=== PATIENT | male | born 1955 | race Caucasian/White ===

== ENCOUNTER → 2023-11-24 10:37 | Outpatient (REF) | payer OTHER, SELFPAY | LOC: HWRAD 10:37 | PROVIDERS: ATTENDING PHYSICIAN Family Medicine | DX: I10 Essential (primary) hypertension (principal) | CPT/HCPCS: 71046 ==

== ENCOUNTER → 2024-10-12 14:48 | Outpatient (REF) | payer OTHER, SELFPAY | LOC: HWRAD 14:48 | PROVIDERS: ATTENDING PHYSICIAN Family Medicine | DX: I83.90 Asymptomatic varicose veins of unspecified lower extremity (principal) | CPT/HCPCS: 93970 ==

== ENCOUNTER 2025-05-15 19:18 | Inpatient (IN) | payer OTHER, SELFPAY ==
[2025-05-15 14:40] VITALS: BP 146/100
[2025-05-15 15:09] LABS: Hematocrit 40.9 % (39.0-52.0); Hemoglobin 13.8 g/dL (13.0-18.0); Mean Corp Hgb Conc. 33.7 g/dL (33.0-37.0); Mean Corpuscular Volume 86.1 fL (80.0-94.0); Nucleated Red Blood Cells % 0 % (-); Platelet Count 156 10^3/uL (130-400); Red Cell Dist. Width 12.5 % (11.5-14.5)
[2025-05-15 15:18] VITALS: BMI 33.4
--- NOTE | 2025-05-15 15:28 | ED.GENMED ---
History of Present Illness
<Kian Zhao, HOSPITAL STAFF PHARMACIST - Last Filed: 05/15/25 19:46>
General
Chief Complaint: DVT/Possible Blood Clot
Source: patient
Exam Limitations: none
Time Seen by Provider: 05/15/25 15:25
Nursing documentation reviewed up to this point in time: agreed with
History of Present Illness
History of Present Illness:
69-year-old male with history of HTN, GERD, IDDM, asthma presents for increasing redness, swelling, pain right lower extremity over the past 5 days. He is on amoxicillin 500 mg 3 times daily for sinus infection for the past 5 days. He denies fever
or chills. No recent travel. No known risk factors for clotting disorder
Past History
<Kina Zhao, HOSPITAL STAFF PHARMACIST - Last Filed: 05/15/25 19:46>
Past History
ED Past Medical History: Asthma and HTN
ED Past Surgical History: None
Social History
Tobacco: Non-smoker
Personal:
Living: with family
Employment: Employed
Review of Systems
<Kina Zhao, HOSPITAL STAFF PHARMACIST - Last Filed: 05/15/25 19:46>
Review of Systems
Allergies reviewed?: Yes
All Other Systems: ROS reviewed and negative except as documented in HPI and ROS
Phy Exam
<Kina Zhao, HOSPITAL STAFF PHARMACIST - Last Filed: 05/15/25 19:46>
Physical Exam
Physical Exam:
GENERAL: No acute distress. A&Ox3.
CONSTITUTIONAL: Afebrile.
EYES: clear, conjunctivae normal
ENMT: moist mucus membranes, Pharynx nl
RESPIRATORY: Regular respirations, nonlabored, lungs clear.
CARDIOVASCULAR: Regular rate and rhythm, no murmurs, no rubs. +2 bilateral pedal pulses, feet warm and pink.
GI: Soft, nontender, normal BS
MUSCULOSKELETAL: Moves with ease. Well perfused.
SKIN: Warm, dry, pink. Right lower extremity is swollen twice the size of opposite leg, it is warm, red and tender. Most of the redness is from the knee down to the ankle, the foot is spared, the thigh has faint redness entire thigh.
PSYCH: Normal mood and affect. Well kept, interactive and appropriate
NEUROLOGIC: Awake, alert and oriented. No focal neurological deficits
Course
<Kina Zhao, HOSPITAL STAFF PHARMACIST - Last Filed: 05/15/25 19:46>
Orders/Labs/Results
Orders:
Orders
05/15/25 14:43
Periph Venous Lwr Ext Rt US [US Periph Venous LOWER Ext RT] Urgent
Comment:
Reason For Exam: swelling/pain
05/15/25 14:53
Complete Blood Count/With Diff Urgent
Comprehensive Metabolic Panel Urgent
05/15/25 17:[address] See Dose Instructions PO NOW STA
Discontinue all Active Warfarin orders?: Yes
Nursing to Place Non Medication Order As Directed
Physician Order: PTT 6 hours after initial start of Heparin infusion
Above order entered?: Yes
05/15/25 17:30
Heparin 22478 Units/250 ml 25,000 units in 250 ml IV PER PROTOCOL
Weight to be used for heparin protocol in kilograms (kg):: 96.5
Protocol:: DVT/PE
PTT Goal Range to be used:: PTT 73 to 111 seconds
Order type:: Initial
INITIAL Infusion Dose (UNITS/KG/hr) & then follow protocol:: 18 units/kg/hr
Infusion Dose in UNITS/hr & then follow protocol (UNITS/hr):: 1,700
INFUSION RATE in mL/hr & then follow protocol (mL/hr):: 17
For DVT/PE algorithm, re-bolus for low PTT?: Yes
PTT less than or equal to 64 seconds:: Re-bolus 80 units/kg (max 10,000units). Increase by 400 units/hr
(+ 4mL/hr)
PTT 64.1 to 72.9 seconds:: Re-bolus 40 units/kg (max 5,000 units). Increase by 200 units/hr
(+ 2mL/hr)
PTT 73 to 111 seconds:: Target Range. No change in rate.
PTT 111.1 to 130.9 seconds:: Decrease rate by 200 units/hr (- 2 mL/hr)
PTT 131 to 199.9 seconds:: HOLD for 1 hr. Then decrease by 300 units/hr (- 3mL/hr)
PTT greater than or equal to 200 seconds:: HOLD for 2 hrs & Notify Provider. Then decrease by 400 units/hr
(- 4mL/hr)
Lab follow-up:: Each change, PTT q6h until 2 consecutive are therapeutic. Then
PTT daily.
05/15/25 17:34
Dima Wrap Right-Treatment ONCE
05/15/25 17:35
Vascular Surgery Consult Urgent
Consulting Provider: Laila Irizarry
Was physician already notified: Yes
Reason for consult: Extensive DVT RLE
05/15/25 17:[address] Non Medication Order As Directed
Physician Order: please do med rec
Above order entered?: Yes
05/15/25 17:57
CT Abd/Pel (IV only)-DH only Urgent
Comment: VENOGRAM
Reason For Exam: thrombosis
05/15/25 18:00
Heparin [id number] Units/250 ml 25,000 units in 250 ml IV PER PROTOCOL
Weight to be used for heparin protocol in kilograms (kg):: 96.5
Protocol:: DVT/PE
PTT Goal Range to be used:: PTT 73 to 111 seconds
Order type:: Initial
INITIAL Infusion Dose (UNITS/KG/hr) & then follow protocol:: 18 units/kg/hr
Infusion Dose in UNITS/hr & then follow protocol (UNITS/hr):: 1,700
INFUSION RATE in mL/hr & then follow protocol (mL/hr):: 17
For DVT/PE algorithm, re-bolus for low PTT?: Yes
PTT less than or equal to 64 seconds:: Re-bolus 80 units/kg (max 10,000units). Increase by 400 units/hr
(+ 4mL/hr)
PTT 64.1 to 72.9 seconds:: Re-bolus 40 units/kg (max 5,000 units). Increase by 200 units/hr
(+ 2mL/hr)
PTT 73 to 111 seconds:: Target Range. No change in rate.
PTT 111.1 to 130.9 seconds:: Decrease rate by 200 units/hr (- 2 mL/hr)
PTT 131 to 199.9 seconds:: HOLD for 1 hr. Then decrease by 300 units/hr (- 3mL/hr)
PTT greater than or equal to 200 seconds:: HOLD for 2 hrs & Notify Provider. Then decrease by 400 units/hr
(- 4mL/hr)
Lab follow-up:: Each change, PTT q6h until 2 consecutive are therapeutic. Then
PTT daily.
Pharmacy Request to Place See Dose Instructions IV DIRECTED
05/15/25 18:03
Admit/Transfer Patient As Directed
Co-Sign Provider:
Level of Care: Inpatient admission
Assign to:: Medical/Surgical
Physician / Group: Obinna
Diagnosis: RLE DVT
Reason for Hospitalization: No other acute symptoms.
Expected length of stay greater than two midnights?: Yes
ELOS- Estimated Length of Stay in days: 3
I certify the patient meets the requirements for IP care: Yes
PRN Pain Medication Management As Directed
May give lesser potent ordered pain med per pt: Yes
preference::
Protocol:: Medication orders for pain may be administered in a
manner that supports deferring to patient preference
when the pt is:
- Requesting an ordered lesser potent pain medication.
Least to most potent pain medications are defined
as: acetaminophen < NSAID < tramadol < opioids
(morphine, oxycodone, hydromorphone).
- Requesting a lesser dose of the same medication IF
ORDERED.
- Requesting a less intrusive route of administration
if both routes are prescribed by the provider (PO <
IV).
05/15/25 18:04
Code Status As Directed
Resuscitation Status: Full Code
05/15/25 18:22
PTT Urgent
Prothrombin Time Urgent
05/15/25 18:40
Heparin 3,800 units IV PRN PRN
Heparin 7,700 units IV PRN PRN
05/16/25 00:45
PTT Urgent
Abnormal Lab Results
05/15/25
14:53
Sodium 133 L mmol/L
(135-145)
Carbon Dioxide 19 L mmol/L
(22-30)
Glucose 270 H mg/dl
(70-99)
05/15/25 14:53
05/15/25 14:53
Vital Signs
Initial and Last Documented VS:
Initial Vital Signs
Temp Pulse Resp BP Pulse Ox
98.9 F 98 18 146/100 96
05/15/25 14:40 05/15/25 14:40 05/15/25 14:40 05/15/25 14:40 05/15/25 14:40
Last Documented Vital Signs
Temp Pulse Resp BP Pulse Ox
98.9 F 97 18 148/93 97
05/15/25 14:40 05/15/25 18:00 05/15/25 18:00 05/15/25 18:00 05/15/25 18:00
Lead Electrical Engineer consulted with Physician
Lead Electrical Engineer consulted with physician?: Yes
Name of Physician Consulted: Mason
<Radha Cuevas, DO - Last Filed: 05/15/25 18:08>
Orders/Labs/Results
Orders:
Orders
05/15/25 14:43
Periph Venous Lwr Ext Rt US [US Periph Venous LOWER Ext RT] Urgent
Comment:
Reason For Exam: swelling/pain
05/15/25 14:53
Complete Blood Count/With Diff Urgent
Comprehensive Metabolic Panel Urgent
05/15/25 17:[address] See Dose Instructions PO NOW STA
Discontinue all Active Warfarin orders?: Yes
Nursing to Place Non Medication Order As Directed
Physician Order: PTT 6 hours after initial start of Heparin infusion
Above order entered?: Yes
05/15/25 17:30
Heparin [id number] Units/250 ml 25,000 units in 250 ml IV PER PROTOCOL
Weight to be used for heparin protocol in kilograms (kg):: 96.5
Protocol:: DVT/PE
PTT Goal Range to be used:: PTT 73 to 111 seconds
Order type:: Initial
INITIAL Infusion Dose (UNITS/KG/hr) & then follow protocol:: 18 units/kg/hr
Infusion Dose in UNITS/hr & then follow protocol (UNITS/hr):: 1,700
INFUSION RATE in mL/hr & then follow protocol (mL/hr):: 17
For DVT/PE algorithm, re-bolus for low PTT?: Yes
PTT less than or equal to 64 seconds:: Re-bolus 80 units/kg (max 10,000units). Increase by 400 units/hr
(+ 4mL/hr)
PTT 64.1 to 72.9 seconds:: Re-bolus 40 units/kg (max 5,000 units). Increase by 200 units/hr
(+ 2mL/hr)
PTT 73 to 111 seconds:: Target Range. No change in rate.
PTT 111.1 to 130.9 seconds:: Decrease rate by 200 units/hr (- 2 mL/hr)
PTT 131 to 199.9 seconds:: HOLD for 1 hr. Then decrease by 300 units/hr (- 3mL/hr)
PTT greater than or equal to 200 seconds:: HOLD for 2 hrs & Notify Provider. Then decrease by 400 units/hr
(- 4mL/hr)
Lab follow-up:: Each change, PTT q6h until 2 consecutive are therapeutic. Then
PTT daily.
05/15/25 17:34
Dima Wrap Right-Treatment ONCE
05/15/25 17:35
Vascular Surgery Consult Urgent
Consulting Provider: Laila Irizarry
Was physician already notified: Yes
Reason for consult: Extensive DVT RLE
05/15/25 17:[address] Non Medication Order As Directed
Physician Order: please do med rec
Above order entered?: Yes
05/15/25 17:57
CT Abd/Pel (IV only)-DH only Urgent
Comment: VENOGRAM
Reason For Exam: thrombosis
05/15/25 18:00
Heparin [id number] Units/250 ml 25,000 units in 250 ml IV PER PROTOCOL
Weight to be used for heparin protocol in kilograms (kg):: 96.5
Protocol:: DVT/PE
PTT Goal Range to be used:: PTT 73 to 111 seconds
Order type:: Initial
INITIAL Infusion Dose (UNITS/KG/hr) & then follow protocol:: 18 units/kg/hr
Infusion Dose in UNITS/hr & then follow protocol (UNITS/hr):: 1,700
INFUSION RATE in mL/hr & then follow protocol (mL/hr):: 17
For DVT/PE algorithm, re-bolus for low PTT?: Yes
PTT less than or equal to 64 seconds:: Re-bolus 80 units/kg (max 10,000units). Increase by 400 units/hr
(+ 4mL/hr)
PTT 64.1 to 72.9 seconds:: Re-bolus 40 units/kg (max 5,000 units). Increase by 200 units/hr
(+ 2mL/hr)
PTT 73 to 111 seconds:: Target Range. No change in rate.
PTT 111.1 to 130.9 seconds:: Decrease rate by 200 units/hr (- 2 mL/hr)
PTT 131 to 199.9 seconds:: HOLD for 1 hr. Then decrease by 300 units/hr (- 3mL/hr)
PTT greater than or equal to 200 seconds:: HOLD for 2 hrs & Notify Provider. Then decrease by 400 units/hr
(- 4mL/hr)
Lab follow-up:: Each change, PTT q6h until 2 consecutive are therapeutic. Then
PTT daily.
Pharmacy Request to Place See Dose Instructions IV DIRECTED
05/15/25 18:03
Admit/Transfer Patient As Directed
Co-Sign Provider:
Level of Care: Inpatient admission
Assign to:: Medical/Surgical
Physician / Group: Obinna
Diagnosis: RLE DVT
Reason for Hospitalization: No other acute symptoms.
Expected length of stay greater than two midnights?: Yes
ELOS- Estimated Length of Stay in days: 3
I certify the patient meets the requirements for IP care: Yes
PRN Pain Medication Management As Directed
May give lesser potent ordered pain med per pt: Yes
preference::
Protocol:: Medication orders for pain may be administered in a
manner that supports deferring to patient preference
when the pt is:
- Requesting an ordered lesser potent pain medication.
Least to most potent pain medications are defined
as: acetaminophen < NSAID < tramadol < opioids
(morphine, oxycodone, hydromorphone).
- Requesting a lesser dose of the same medication IF
ORDERED.
- Requesting a less intrusive route of administration
if both routes are prescribed by the provider (PO <
IV).
05/15/25 18:04
Code Status As Directed
Resuscitation Status: Full Code
05/15/25 18:22
PTT Urgent
Prothrombin Time Urgent
05/15/25 18:40
Heparin 3,800 units IV PRN PRN
Heparin 7,700 units IV PRN PRN
05/16/25 00:45
PTT Urgent
Abnormal Lab Results
05/15/25
14:53
Sodium 133 L mmol/L
(135-145)
Carbon Dioxide 19 L mmol/L
(22-30)
Glucose 270 H mg/dl
(70-99)
05/15/25 14:53
05/15/25 14:53
Vital Signs
Initial and Last Documented VS:
Initial Vital Signs
Temp Pulse Resp BP Pulse Ox
98.9 F 98 18 146/100 96
05/15/25 14:40 05/15/25 14:40 05/15/25 14:40 05/15/25 14:40 05/15/25 14:40
Last Documented Vital Signs
Temp Pulse Resp BP Pulse Ox
98.9 F 97 18 148/93 97
05/15/25 14:40 05/15/25 18:00 05/15/25 18:00 05/15/25 18:00 05/15/25 18:00
<Kina Zhao, HOSPITAL STAFF PHARMACIST - Last Filed: 05/15/25 19:46>
MDM/Problems Addressed
Differential Diagnosis Includes:
DVT, Cellulitis
MDM/Problems Addressed:
69-year-old male with history of HTN, GERD, IDDM, asthma presents for increasing redness, swelling, pain right lower extremity over the past 5 days. He is on amoxicillin 500 mg 3 times daily for sinus infection for the past 5 days. He denies fever
or chills. No recent travel. No known risk factors for clotting
Afebrile, NAD
CBC normal
CMP with no clinically significant abnormality
Ultrasound right lower extremity radiology report read: IMPRESSION: Severe extensive DVT of the right lower extremity as described above. New.
Limited evaluation of the calf veins due to soft tissue edema. New.
Case discussed with Dr. Cuevas
5:00 PM:
Ultrasound right lower extremity radiology report read:
IMPRESSION: Severe extensive DVT of the right lower extremity as described above. New.
Limited evaluation of the calf veins due to soft tissue edema. New.
5:30 p.m.
Consulted vascular surgery Dr. Irizarry who requests admission, heparin drip, CTV of pelvis to be done tomorrow, n.p.o. after midnight, elevate and Dima wrap
Hospitalist notified of admission.
<Kina Zhao, HOSPITAL STAFF PHARMACIST - Last Filed: 05/15/25 19:46>
*Pulse Oximetry
SaO2: 96
Oxygen Mode of Delivery: Room air
Patient hypoxic: no
*Critical Care Note
Total Time (30-74mins, 75-104mins- exclusive of procedures): Not Applicable
ED Attending Note
<Kina Zhao, HOSPITAL STAFF PHARMACIST - Last Filed: 05/15/25 19:46>
-
Portions of this chart may have been created with voice recognition software.� Occasional wrong word or��sound alike� substitutions may have occurred due to the inherent limitations of voice recognition software.
<Radha Cuevas, DO - Last Filed: 05/15/25 18:08>
ED Attending Note
Patient seen and examined by attending physician: Yes
I performed the substantive portion of visit, reviewed & personally made and approve the management plan that is documented in note by myself or NIRAJ.: Yes
I performed a history and physical exam of patient and discussed management with resident, I reviewed resident's note and agree with documented findings and plan of care.: Yes
ED Attending Note:
69-year-old male presenting to the emergency department for right lower extremity swelling and pain. Patient notes symptoms for the past 5 days. Reports he had something similar about a month ago, however went away on its own. Denies any recent
immobility or recent travel. Denies any history of blood clots. Denies numbness or tingling. Notes that he has been scratching at the top of anterior yusuf, thought that maybe he had a rash from a plant. Denies fever. Notes pain with ambulation,
however is able to bear weight. Denies any recent injury. He denies chest pain or difficulty breathing. Vital signs on arrival are significant for mild hypertension.
On exam, patient resting comfortably. Significant swelling to the right lower extremity in comparison to the left encompassing the entire leg, from the calf up to the thigh. There is erythema and warmth. Intact sensation and palpable pulses
without concern for arterial compromise. Labs obtained prior to my assessment, unremarkable, no leukocytosis. Lower suspicion for cellulitis. DVT ultrasound obtained prior to my assessment which does show significant DVT encompassing the entire
right leg involving the common femoral. In discussion with vascular, plan for CT venogram, admission with heparin drip, possible thrombectomy
Discharge Plan
Departure
Patient Disposition: Admit
Date of Disposition: 05/15/25
Time of Disposition: 17:36
Admit to: Med/Surg
Presentation/result/management discussed w/ accepting MD/DO: Hospitalist
Condition: Fair
Discharge Problem:
Deep vein thrombosis (DVT) of right lower extremity
Interventions
Interventions:
*Risk Screen - Suicide Last Done: 05/15/25 14:40
*General Assessment Last Done: 05/15/25 14:40
*Neglect/Abuse Screening Last Done: 05/15/25 14:40
*ED- Fall Risk Assessment Last Done: 05/15/25 14:40
*ED COVID-19 Vaccine History Last Done: 05/15/25 14:40
*ED Influenza Vaccine History Last Done: 05/15/25 14:40
ED- Cardiac Assessment Last Done: 05/15/25 15:18
ED- Pulmonary Assessment Last Done: 05/15/25 15:18
ED-Peripheral Vascular Assessment Last Done: 05/15/25 15:18
ED-Skin Assessment Last Done: 05/15/25 15:18
[2025-05-15 15:37] LABS: ALT (SGPT) 32 U/L (0-50); AST (SGOT) 32 U/L (17-59); Albumin 4.3 g/dl (3.5-5.0); Alkaline Phosphatase 79 U/L (38-126); Blood Urea Nitrogen 18 mg/dl (9-20); Calcium 8.9 mg/dl (8.4-10.2); Carbon Dioxide 19 mmol/L (22-30); Chloride 103 mmol/L (98-107); Estimated Creatinine Clearance 98 ml/min; Glucose 270 mg/dl (70-99); Potassium 4.6 mmol/L (3.5-5.1); Sodium 133 mmol/L (135-145); Total Protein 6.7 g/dl (6.3-8.2); eGFR > 60.00
--- NOTE | 2025-05-15 17:38 | HPS.HSE ---
Addendum entered and electronically signed by Mariano Yeboah MD 05/15/25 18:08:
RLE U/S: Severe extensive DVT of the right lower extremity as described above. New.
Limited evaluation of the calf veins due to soft tissue edema. New.
Original Note:
Family Physician
-
Family Physician: Wolfgang Calhoun
Chief Complaint
-
Right lower extremity pain, edema, erythema x 5 days
History of Present Illness
69 y/o M with PMHx:
Essential HTN
Obesity due to excess calories
GERD
DM2
who p/w CC Right lower extremity pain, edema, erythema x 5 days. Patient denies any recent travel or trauma. Of note he has been on amoxicillin over the last 5 days for sinus infection. He has had some associated headaches. 5 days ago he had
some vomiting which was thought to be due to food poisoning. No other acute symptoms.
Medical History
Past Medical History
Past Medical History: Reports Other (as per HPI)
Past Surgical History: Reports Other (N/A)
Social History
Tobacco: Non-smoker
Alcohol: None
Drug: Marijuana
Family History
Family History: Not pertinent
Allergies / Home Medications
Allergies reflects when Allergies were last updated in [employer].
Home Medications with original date entered in [employer]
Allergy/Medication List:
Allergies
Allergy/AdvReac Type Severity Reaction Status Date / Time
soy Allergy HEADACHE Verified 05/15/25 14:40
Home Medications
metformin 500 mg tablet 500 mg PO BID #60 tabs 12/07/16
Med rec being completed now
Review of Systems
-
History Source: Patient
A 12 point ROS was completed and negative except as noted: Yes
Physical Exam
Vital Signs
Vital Signs
Temp Pulse Resp BP Pulse Ox
98.9 F 98 18 146/100 96
05/15/25 14:40 05/15/25 14:40 05/15/25 14:40 05/15/25 14:40 05/15/25 15:29
Physical Exam
General: Other (.)
Laboratory Results
-
05/15/25 14:53
05/15/25 14:53
Laboratory Results
Total Bilirubin 0.9 mg/dl (0.2-1.3) 05/15/25 14:53
AST 32 U/L (17-59) 05/15/25 14:53
ALT 32 U/L (0-50) 05/15/25 14:53
Alkaline Phosphatase 79 U/L (38-126) 05/15/25 14:53
Impression/Plan
-
Gen: NAD, AAOx3.
Eyes: EOMI, PERRLA, no scleral icterus.
Neck: supple.
CV: RRR, +S1/S2, no m/r/g.
Resp: CTAB, no rales, wheezes, or rhonchi.
Abd: +BS, soft, NT, ND
Skin: 2+ RLE edema
Vasc: 2+ R DP pulse
Neuro: CN 2-12 intact, non-focal.
Psych: Normal mood and affect.
Extensive, unprovoked right lower extremity DVT:
-heparin gtt
-vascular to see
-NPO after MN
-elevation/VENKAT wrap as per vascular
-check CT venogram pelvis
Other problems:
Essential HTN: will order home antihypertensives once med rec completed
Obesity due to excess calories: Encourage weight loss
GERD: cont PPI
DM2: No metformin as patient will receive contrast. SSI/accuchecks, check a1c.
FULL/heparin gtt
[2025-05-15 18:00] VITALS: BP 148/93
[2025-05-15 18:39] LABS: INR 1.02; PT 13.9 Sec (11.4-14.6)
[2025-05-15 18:40] LABS: APTT 27.2 Sec (23.4-35.0)
[2025-05-15] MEDS: HEPARIN 25000 UNITS/250 ML IV (18:47)
[2025-05-15 20:30] VITALS: BMI 32.8
[2025-05-15 20:34] VITALS: BP 164/90
--- NOTE | 2025-05-15 20:34 | PTCARENOTE ---
Pt arrived to room 416-01. Pt AAOx3, VSS. Pt hep gtt @1700 units/ hr. Pt oriented to room, call menezes placed within reach. Bed alarm in place.
[2025-05-15 21:04] LABS: Glucose - Point of Care 263 mg/dl (70-99)
[2025-05-15 22:38] VITALS: BP 148/85
[2025-05-16 01:11] LABS: APTT 72.8 Sec (23.4-35.0)
[2025-05-16] MEDS: HEPARIN 3800 UNITS IV ×2 (01:50→16:28)
[2025-05-16] MEDS: LANTUS 0.4 UNITS SC ×2 (02:28→22:00)
[2025-05-16 06:02] LABS: Glucose - Point of Care 106 mg/dl (70-99)
[2025-05-16 07:20] VITALS: BP 130/76
[2025-05-16 07:40] LABS: Hematocrit 39.0 % (39.0-52.0); Hemoglobin 13.5 g/dL (13.0-18.0); Mean Corp Hgb Conc. 34.6 g/dL (33.0-37.0); Mean Corpuscular Volume 83.2 fL (80.0-94.0); Platelet Count 167 10^3/uL (130-400); Red Cell Dist. Width 12.6 % (11.5-14.5)
[2025-05-16 08:02] LABS: APTT 153.6 Sec (23.4-35.0)
--- NOTE | 2025-05-16 08:11 | CON.VAS ---
Consultation
Consultation Request
Date/Time Consultation Performed: 05/16/25 0800
Requesting Provider: Hospitalist
Performing Provider: Jyoti Bolanos NP-C for Krishan Cisneros MD
Reason for Consultation: RLE extensive DVT
Medical History
-
Chief Complaint: Extensive RLE DVT
History of Present Illness:
This is a 69-year-old male with significant past medical history for asthma, GERD, HTN, and DM who presents with 5-day history of right lower extremity swelling. Does not note severe pain, but when he walked he notes that his leg tires out. He
also notes that about a month ago he had symptoms in the same leg of swelling, but much lesser so than currently. Denies any prior history of DVTs. No family history of DVTs. No recent major surgeries. No immobility (prolonged car or plane
rides). No recent hospitalizations. Notes also no contraindications to thrombolysis (no intracranial bleed/tumor/CVA/GI bleeds/recent major surgery). Ultrasound of RLE was obtained and demonstrated, 'right common femoral, superficial femoral, and
popliteal veins all show diffuse intraluminal echogenicity consistent with thrombus formation. This is occlusive.' CT venogram then demonstrated, 'right lower extremity DVT extends into the distal aspect of the right external iliac vein. No thrombus
in the common iliac veins or IVC.'
Past Medical History
Past Medical History: Asthma, GERD, HTN and IDDM (obesity )
Past Surgical History: None
Social History
Tobacco: Non-Smoker
Alcohol: None
Drug: Marijuana
Allergies / Home Medications
Allergy/AdvReac Type Severity Reaction Status Date / Time
soy Allergy HEADACHE Verified 05/15/25 14:40
�Medication �Instructions �Recorded �Confirmed �Type
amoxicillin 500 mg capsule 500 mg PO TID 05/15/25 05/15/25 History
insulin glargine 100 unit/mL (3 30 unit SC DAILY 05/15/25 05/16/25 History
mL) subcutaneous pen (Lantus
Solostar U-100 Insulin)
insulin glargine 100 unit/mL (3 40 unit SC HS 05/15/25 05/16/25 History
mL) subcutaneous pen (Lantus
Solostar U-100 Insulin)
lisinopril 20 mg tablet 20 mg PO DAILY 05/15/25 05/16/25 History
metformin 500 mg tablet 500 mg PO QID 05/15/25 05/16/25 History
Review of Systems
-
History Source: Patient
Constitutional: Reports No Symptoms
EENT: Reports Other (intermittent GONSALVES r/t recent sinus infection )
Respiratory: Reports No Symptoms
Cardiac: Reports No Symptoms
Vascular: Denies Leg Pain / Claudication
Abdomen/GI: Reports No Symptoms
: Reports No Symptoms
Musculoskeletal: Reports Other (RLE leg swelling and fatigue)
Skin: Reports No Symptoms
Neurological: Reports No Symptoms
Endocrine: Reports No Symptoms
Physical Exam
Vital Signs
Temp Pulse Resp BP Pulse Ox
98.1 F 84 18 130/76 98
05/16/25 07:20 05/16/25 07:20 05/16/25 07:20 05/16/25 07:20 05/16/25 07:20
Lab Results
05/16/25 07:25
Physical Exam
General: No Apparent Distress
HEENT: Normocephalic, Anicteric and Atraumatic
Respiratory: Non Labored Respirations
Cardiac: Negative JVD
GI: Soft, Non Tender and Non Distended
Musculoskeletal: Edema
Skin: Warm, Dry and Other ( Right thigh and calf are moderately edematous compared to the left. However compartments are all soft. All compressive, no significant tenderness. Foot is warm with no evidence of phlegmasia. Palpable pedal pulses.
Motor/sensory fully intact)
Neuro: AO x 3
Psych: Calm
Assessment / Plan
-
Assessment: 69 year old male with extensive DVT in RLE
Plan:
Patient was seen and examined with attending Dr. Krishan Cisneros who had a very extensive discussion with him regarding management of DVT. Discussed with him initial therapy with anticoagulation, compression. Discussed role for catheter-based
intervention (catheter directed thrombolysis versus mechanical or pharmacomechanical thrombectomy) generally with advantages noted in the setting of iliofemoral DVTs. Discussed with him that his thrombus extends just into the external iliac vein
but not far above that. Discussed therefore that could pursue either option. Could offer catheter-based procedure (discussed with him the benefit in terms of accelerated symptom reduction, but also mainly in terms of prevention of post thrombotic
syndrome). Discussed alternatively the therapy of anticoagulation with compression wrap. Discussed anticoagulation does not have lytic ability as it is missed conceived frequently. Therefore clot may not dissolved. Although bodies on lytic
mechanism may dissolve some. Regardless with compression and anticoagulation, symptoms would onur generally with formation of collateral pathways. Dr. Cisneros discussed procedural technical aspects as well as anticipated outcome/recovery. Discussed
risks including not limited to bleeding, recurrent thrombus, PE. He understands all these things. He wishes to hold off on intervention if possible. Therefore we will continue with anticoagulation, compression therapy. I did discuss with him
frankly that if we hold off on any intervention currently that down the line may be more challenging due to the chronicity of the thrombus. He understands. We will sign off. Please call me with any questions.
Additionally recommend outpatient hematology consultation
[2025-05-16 08:24] LABS: Glucose - Point of Care 110 mg/dl (70-99)
[2025-05-16 08:59] LABS: Glycohemoglobin (HgbA1c) 9.5 % (4.0-5.6)
[2025-05-16 09:06] LABS: Blood Urea Nitrogen 14 mg/dl (9-20); Carbon Dioxide 25 mmol/L (22-30); Estimated Creatinine Clearance 111 ml/min; Potassium 4.1 mmol/L (3.5-5.1); Sodium 137 mmol/L (135-145); eGFR > 60.00
[2025-05-16] MEDS: HEPARIN 25000 UNITS/250 ML IV (09:20)
--- NOTE | 2025-05-16 09:35 | W.PN.UPDATE ---
Update Note
Progress Note Update
Seen and examined with INDUSTRIAL CONTROLS TECHNICIAN's. Full consultation to follow. 69-year-old male who presents with 5-day history of right lower extremity swelling. Does not note severe pain, but when he walked he notes that his leg tires out. He also notes that about
a month ago he had symptoms in the same leg of swelling, but much lesser so than currently. Denies any prior history of DVTs. No family history of DVTs. No recent major surgeries. No immobility (prolonged car or plane rides). No recent
hospitalizations. Notes also no contraindications to thrombolysis (no intracranial bleed/tumor/CVA/GI bleeds/recent major surgery).
On exam/he is awake alert. He is in no acute distress. Breathing is unlabored. Right thigh and calf are moderately edematous compared to the left. However compartments are all soft. All compressive, no significant tenderness. Foot is warm with
no evidence of phlegmasia. Palpable pedal pulses. Motor/sensory fully intact.
I reviewed imaging CT angiogram as well as duplex. Reviewed imaging myself.
Plan/ I had a very extensive discussion with him regarding management of DVT. Discussed with him initial therapy with anticoagulation, compression. Discussed role for catheter-based intervention (catheter directed thrombolysis versus mechanical or
pharmacomechanical thrombectomy) generally with advantages noted in the setting of iliofemoral DVTs. Discussed with him that his thrombus extends just into the external iliac vein but not far above that. In addition in the external iliac vein it
does not appear completely occlusive based on my interpretation of the CT images. Discussed therefore that could pursue either option. Could offer catheter-based procedure (discussed with him the benefit in terms of accelerated symptom reduction,
but also mainly in terms of prevention of post thrombotic syndrome). Discussed alternatively the therapy of anticoagulation with compression wrap. Discussed anticoagulation does not have lytic ability as it is missed conceived frequently.
Therefore clot may not dissolved. Although bodies on lytic mechanism may dissolve some. Regardless with compression and anticoagulation, symptoms would onur generally with formation of collateral pathways. I discussed procedural technical
aspects as well as anticipated outcome/recovery. Discussed risks including not limited to bleeding, recurrent thrombus, PE. He understands all these things. He wishes to hold off on intervention if possible. Therefore we will continue with
anticoagulation, compression therapy. I did discuss with him frankly that if we hold off on any intervention currently that down the line may be more challenging due to the chronicity of the thrombus. He understands. I do not think his decision
is unreasonable. Therefore we will sign off. Please call me with any questions.
[2025-05-16 09:37] LABS: Calcium 9.1 mg/dl (8.4-10.2); Chloride 105 mmol/L (98-107); Glucose 97 mg/dl (70-99)
[2025-05-16] MEDS: LANTUS 0.3 UNITS SC (10:12)
--- NOTE | 2025-05-16 10:38 | W.PN.HOSP.TC ---
Today's Communication/Plan
-
see plan
Assessment / Plan
Assessment / Plan
Gen: NAD, AAOx3.
Eyes: EOMI, PERRLA, no scleral icterus.
Neck: supple.
CV: remains RRR, +S1/S2, no m/r/g.
Resp: CTAB anteriorly, no rales, wheezes, or rhonchi.
Abd: +BS, soft, NT, ND
Skin: 2+ RLE edema, VENKAT wrap in place
Neuro: CN 2-12 intact, non-focal.
Psych: Normal mood and affect.
RLE U/S: Severe extensive DVT of the right lower extremity as described above. New. Limited evaluation of the calf veins due to soft tissue edema. New.
CTV A/P: Right lower extremity DVT extends into the distal aspect of the right external iliac vein. No thrombus in the common iliac veins or IVC.
Extensive, unprovoked right lower extremity DVT:
-cont heparin gtt
-vascular following, pt wishes to hold off on catheter-based procedure at this time
-elevation/VENKAT wrap as per vascular
DM2:
-poorly controlled, a1c 9.5%
-No metformin as patient received contrast
-cont Lantus AM/PM dosing
-SSI/accuchecks
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
Other problems:
Essential HTN: resume ACEi
Obesity due to excess calories: Encourage weight loss
GERD: cont PPI
FULL/heparin gtt
Anticipated Discharge: Within 24 hours
Subjective/Interval History
-
Date of Service: May 16, 2025
Denies RLE pain. Denies CP/SOB.
Objective Data
-
Labs:
Laboratory Results
05/16/25 05/16/25 05/16/25
00:40 07:25 15:20
WBC 8.5
Hgb 13.5
Hct 39.0
Plt Count 167
APTT 72.8 H 153.6 H* Pending
Sodium 137
Potassium 4.1
Chloride 105
Carbon Dioxide 25
BUN 14
Creatinine 0.7
Glucose 97
Calcium 9.1
Vital Signs:
Vital Signs
Temp Pulse Resp BP Pulse Ox
98.1 F 84 18 130/76 98
05/16/25 07:20 05/16/25 07:20 05/16/25 07:20 05/16/25 07:20 05/16/25 07:20
[2025-05-16] MEDS: ZESTRIL 20 MG PO (11:13)
--- NOTE | 2025-05-16 12:14 | CM ---
CM reviewed chart, patient seen bedside with , initial assessment completed.
Patient is a 69-year-old male with history of HTN, GERD, IDDM, asthma presents for increasing redness, swelling, pain right lower extremity over the past 5 days.
Patient resides with his in a one level apartment, one step to enter. Patient is independent with ambulation, reports having walkers/canes in the home if needed.
Patient denies VN/SNF hx, reports hx outpatient therapy in past.
PCP Wolfgang Calhoun, Pharmacy [facility], confirms prescription coverage.
Patient/ deny insecurities at home, however do discuss concern over rent increase- provided [employer] to patient.
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
Plan; home with
[2025-05-16 12:21] LABS: Glucose - Point of Care 125 mg/dl (70-99)
--- NOTE | 2025-05-16 13:14 | PN.DE.MGMTRT ---
Insulin Management
- -
05/16/2025: Diabetes Management Consult
69 year old male who p/w Right lower extremity pain, edema, erythema x 5 days. Found to have Severe extensive RLE DVT.
PMH: Essential HTN, GERD, T2DM and Obesity due to excess calories.
Pt is awake, alert, oriented, sitting up @ edge of bed eating lunch, offers no complaints, at bedside, very supportive.
States he has had diabetes for over 10 years and sees his PCP Wolfgang Monk for routine diabetes care.
He was taking Lantus 30 units in AM, 40 units @ HS and Metformin 500 mg 4 times a day.
States he has not been taking his insulin and Metformin as prescribed. He is taking the AM Lantus dose but forgets to the take the bedtime dose quite often and takes the Metformin twice/day and NOT 4 x/day as noted in his chart. He was also taking
Jardiance in the past but stopped it due to recurrent yeast infections.
He does not exercise and does not adhere to a diabetic diet. states, 'he drinks a lot of sugary stuff'.
He was using a CGM- Mary at some point but stopped using it because' those things don't work for me'.
Says he has a glucose meter and only tests his blood sugars once a day in the morning. A1C 9.5%, Cr 0.7, eGFR >60
His glucose on admission was 270 venous, he was started on his outpatient regimen and Metformin was placed on HOLD post contrast exposure.
HS glucose was 263, received Lantus 40 units, FBG 97 V and 106 POC this AM. Pre- breakfast glucose was 110 and pre-lunch was 126.
Will make no changes to current regimen. Cont Lantus 30 units in AM and 40 units @ HS. Will resume Metformin on 05/18 in AM at 1000 mg BID.
Will consult IP dietitian for dietary counseling.
Discussed with Nurse. Will cont to follow
Diabetes History
- -
Type of Diabetes: 2 requiring insulin
Pre-Admission Diabetes Regimen
05/15/25 05/16/25
14:53 07:25
Creatinine 0.8 0.7
Lab Results
Hemoglobin A1c 9.5 % (4.0-5.6) H 05/16/25 07:25
Insulin Pump Settings
IP Diabetes Regimen
05/15/25 05/15/25 05/16/25
14:53 21:03 06:00
Glucose 270 H
POC Glucose 263 H 106 H
05/16/25 05/16/25 05/16/25
07:25 08:23 12:20
Glucose 97
POC Glucose 110 H 125 H
Patient Education
[2025-05-16 15:32] VITALS: BP 114/64
[2025-05-16 15:48] LABS: APTT 65.9 Sec (23.4-35.0)
[2025-05-16] MEDS: AMOXIL 500 MG PO ×2 (16:29→21:58)
[2025-05-16 17:52] LABS: Glucose - Point of Care 131 mg/dl (70-99)
[2025-05-16 21:43] LABS: Glucose - Point of Care 94 mg/dl (70-99)
[2025-05-16 23:01] LABS: APTT 118.6 Sec (23.4-35.0)
[2025-05-16 23:07] VITALS: BP 107/56
[2025-05-17] MEDS: HEPARIN 25000 UNITS/250 ML IV (01:04)
[2025-05-17 05:53] LABS: Hematocrit 40.0 % (39.0-52.0); Hemoglobin 13.9 g/dL (13.0-18.0); Mean Corp Hgb Conc. 34.8 g/dL (33.0-37.0); Mean Corpuscular Volume 82.6 fL (80.0-94.0); Platelet Count 199 10^3/uL (130-400); Red Cell Dist. Width 12.5 % (11.5-14.5)
[2025-05-17 06:14] LABS: APTT 76.4 Sec (23.4-35.0)
[2025-05-17 07:00] VITALS: BP 122/85
[2025-05-17 07:12] LABS: Blood Urea Nitrogen 12 mg/dl (9-20); Calcium 9.0 mg/dl (8.4-10.2); Carbon Dioxide 23 mmol/L (22-30); Chloride 106 mmol/L (98-107); Estimated Creatinine Clearance 111 ml/min; Glucose 78 mg/dl (70-99); Potassium 3.9 mmol/L (3.5-5.1); Sodium 138 mmol/L (135-145); eGFR > 60.00
--- NOTE | 2025-05-17 07:44 | PN.DE.MGMTRT ---
Insulin Management
- -
05/17/2025: Diabetes Management Follow up
69 year old male who p/w Right lower extremity pain, edema, erythema x 5 days. Found to have Severe extensive RLE DVT.
PMH: Essential HTN, GERD, T2DM and Obesity due to excess calories.
Patient states he has had diabetes for over 10 years and sees his PCP Wolfgang Monk for routine diabetes care.
He was taking Lantus 30 units in AM, 40 units @ HS and Metformin 500 mg 4 times a day.
States he has not been taking his insulin and Metformin as prescribed. He is taking the AM Lantus dose but forgets to the take the bedtime dose quite often and takes the Metformin twice/day and NOT 4 x/day as noted in his chart. He was also taking
Jardiance in the past but stopped it due to recurrent yeast infections.
He does not exercise and does not adhere to a diabetic diet. states, 'he drinks a lot of sugary stuff'.
He was using a CGM- Mary at some point but stopped using it because' those things don't work for me'.
Says he has a glucose meter and only tests his blood sugars once a day in the morning. A1C 9.5%, Cr 0.7, eGFR >60
His glucose on admission was 270 venous, he was started on his outpatient regimen and Metformin was placed on HOLD post contrast exposure.
Pt is awake, alert, oriented, sitting up @ edge of bed, offers no complaints, able to discuss diabetes care plan.
05/16 glucose stable and in range, premeal 110 to 131. HS glucose was 94, received Lantus 40 units, fasting 78 V, 86 POC this AM
Will reduce HS Lantus dose from 40 units to 35 units. Cont Lantus 30 units in AM and low corrective insulin with meals
Will resume Metformin on 05/18 in AM at 1000 mg BID.
Discussed with Nurse. Will cont to follow
Diabetes History
- -
Type of Diabetes: 2 requiring insulin
Pre-Admission Diabetes Regimen
05/16/25 05/17/25
07:25 05:38
Creatinine 0.7 0.7
Lab Results
Hemoglobin A1c 9.5 % (4.0-5.6) H 05/16/25 07:25
Insulin Pump Settings
IP Diabetes Regimen
05/16/25 05/16/25 05/16/25
07:25 08:23 12:20
Glucose 97
POC Glucose 110 H 125 H
05/16/25 05/16/25 05/17/25
17:51 21:42 05:38
Glucose 78
POC Glucose 131 H 94
Patient Education
[2025-05-17 07:46] LABS: Glucose - Point of Care 86 mg/dl (70-99)
--- NOTE | 2025-05-17 08:29 | W.PN.HOSP.TC ---
Today's Communication/Plan
-
d/c
Assessment / Plan
Assessment / Plan
Gen: NAD, AAOx3.
Eyes: EOMI, PERRLA, no scleral icterus.
Neck: supple.
CV: continues to remain RRR, +S1/S2, no m/r/g.
Resp: CTAB anteriorly, no rales, wheezes, or rhonchi.
Abd: +BS, soft, NT, ND
Skin: remains 2+ RLE edema, VENKAT wrap in place
Neuro: CN 2-12 intact, non-focal.
Psych: Normal mood and affect.
RLE U/S: Severe extensive DVT of the right lower extremity as described above. New. Limited evaluation of the calf veins due to soft tissue edema. New.
CTV A/P: Right lower extremity DVT extends into the distal aspect of the right external iliac vein. No thrombus in the common iliac veins or IVC.
Extensive, unprovoked right lower extremity DVT:
-stop heparin gtt, transition to Eliquis
-vascular following, pt wishes to hold off on catheter-based procedure at this time
-elevation/VENKAT wrap as per vascular
DM2:
-poorly controlled, a1c 9.5%
-resume metformin on d/c 48 hours after contrast exposure
-cont Lantus AM/PM dosing
-SSI/accuchecks
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
Other problems:
Essential HTN: cont ACEi
Obesity due to excess calories: Encourage weight loss
GERD: cont PPI
FULL/heparin gtt
Total time spent on d/c = 33 min. This included today's physical exam, progress note, review of laboratory and diagnostic data, preparation of discharge documents and prescriptions, and discussions about the pt's hospital course and discharge plan
with the patient and other medical dosimetrist involved in the patient's care.
Anticipated Discharge: Today
Subjective/Interval History
-
Date of Service: May 17, 2025
No new complaints.
Objective Data
-
Labs:
Laboratory Results
05/16/25 05/17/25 05/17/25
22:45 05:38 12:49
WBC 7.8
Hgb 13.9
Hct 40.0
Plt Count 199
APTT 118.6 H 76.4 H Pending
Sodium 138
Potassium 3.9
Chloride 106
Carbon Dioxide 23
BUN 12
Creatinine 0.7
Glucose 78
Calcium 9.0
Vital Signs:
Vital Signs
Temp Pulse Resp BP Pulse Ox
98 F 88 17 122/85 98
05/17/25 07:00 05/17/25 07:00 05/17/25 07:00 05/17/25 07:00 05/17/25 07:00
I&O
05/16/25 05/17/25 05/18/25
06:59 06:59 06:59
Intake Total 1730 / 1730
Output Total 1075 / 1075
Balance 655 / 655
[2025-05-17] MEDS: LANTUS 0.3 UNITS SC (11:05)
[2025-05-17] MEDS: AMOXIL 500 MG PO (11:06)
[2025-05-17] MEDS: ZESTRIL 20 MG PO (11:06)
[2025-05-17 12:13] LABS: Glucose - Point of Care 81 mg/dl (70-99)
[2025-05-17] MEDS: ELIQUIS 10 MG PO (12:39)
--- NOTE | 2025-05-17 12:40 | CM ---
Patient seen at bedside on . Patient states that he is awaiting to transport home, and IMM completed. CM will continue to follow for discharge planning needs.
Plan; home with no needs.
[2025-05-17 13:42] VITALS: BP 140/97
--- NOTE | 2025-05-17 16:34 | W.DCSUMMARY ---
Discharge Summary
Discharge Data
Date of Admission: 05/15/25
Date of Discharge: 05/17/25
-
Pending Results: No
Hospital Course
Primary diagnoses:
Extensive, unprovoked right lower extremity DVT
Secondary diagnoses:
Type 2 diabetes mellitus
Essential hypertension
Obesity due to excess calories
Gastroesophageal reflux disease
Consultants:
Vascular surgery
Imaging:
RLE U/S: Severe extensive DVT of the right lower extremity as described above. New. Limited evaluation of the calf veins due to soft tissue edema. New.
CTV A/P: Right lower extremity DVT extends into the distal aspect of the right external iliac vein. No thrombus in the common iliac veins or IVC.
Hospital course: 69-year-old male who presented with chief complaints of Right lower extremity pain, edema, erythema x 5 days as outlined in the H&P done on admission. Patient was placed on a heparin drip. He was seen in consultation by vascular
surgery. He was offered a catheter-based procedure but refused. His right lower extremity was elevated and wrapped with VENKAT wraps. He was transition to [facility] and discharged in medically stable condition.
Discharge Plan
-
Patient Disposition: Home (Routine Discharge)
Discharge Diagnosis/Procedures: RLE DVT
Condition: Good
Diet: Diabetic, Carb Controlled
Activity: As tolerated
Driving Restrictions: As prior to admission
Referrals:
Wolfgang Calhoun DO [Family Provider, Family Practice] - in less than 1 week
Krishan Cisneros MD [Active, Vascular Surgery] - 05/21/25 8:00 am
Prescriptions:
New
Eliquis 5 mg Tablet
10 mg PO BID Qty: 72 0RF
Rx Instructions:
Loading taper' 10mg BID for 13 more doses, then 5mg BID thereafter
Continued
amoxicillin 500 mg Capsule
500 mg PO TID
Patient Comments:
finish
lisinopril 20 mg Tablet
20 mg PO DAILY
insulin glargine [Lantus Solostar U-100 Insulin] 100 unit/mL (3 mL) Insulin Pen
30 unit SC DAILY
insulin glargine [Lantus Solostar U-100 Insulin] 100 unit/mL (3 mL) Insulin Pen
40 unit SC HS
metformin 500 MG tablet
500 mg PO QID
Discharge Orders:
Discharge Patient (As Directed); Ordered 05/17/25
Ordered By: Mariano Yeboah
Discharge Date and Time
Discharge Date/Time: 05/17/25 13:58
Print Language: TONGAN
== END 2025-05-17 13:58 | disposition home or self-care (01) | DRG 301 ==
LOC: 4 WEST ACU 19:18
PROVIDERS: Registered Nurse; ADMITTING PHYSICIAN Internal Medicine; EMERGENCY PHYSICIAN Student in an Organized Health Care Education/Training Program; FAMILY PHYSICIAN Family Medicine; OTHER PHYSICIAN Nurse Practitioner
DX: I82.401 Acute embolism and thrombosis of unspecified deep veins of right lower extremity (principal); E66.09 Other obesity due to excess calories; K21.9 Gastro-esophageal reflux disease without esophagitis; E11.9 Type 2 diabetes mellitus without complications; I10 Essential (primary) hypertension; J45.909 Unspecified asthma, uncomplicated; Z79.4 Long term (current) use of insulin; Z79.84 Long term (current) use of oral hypoglycemic drugs; Z79.899 Other long term (current) drug therapy
CPT/HCPCS: 74177; 80048; 80053; 82962; 83036; 85025; 85027; 85610; 85730; 93971; 99285; Q9967